=== PATIENT | male | born 1970 | race Caucasian/White ===

== ENCOUNTER 2020-03-30 11:38 | Emergency (ER) | payer BC, SELFPAY ==
[2020-03-30 11:55] VITALS: BP 187/85; PULSE 121; RESP 18; TEMP 37; O2SAT 100
--- NOTE | 2020-03-30 12:24 | ED.GENADULT ---
HPI - General Adult General Chief complaint: Dental/Oral Stated complaint: tooth ache Time Seen by Provider: 03/30/20 12:24 Source: patient and RN notes reviewed Mode of arrival: ambulatory Limitations: no limitations History of Present Illness HPI narrative: 50 year old male who presents to [facility] with complaints of dental pain with swelling to the right side of his face since Tuesday. Patient states that he has had some problems with this back right molar for some time with just intermittent discomfort but since Tuesday the side of his face has been swelling and he has noted pain with redness and swelling around right back molar. Patient denies any trouble with his breathing or any difficulty swallowing. He states that he has been taking Tylenol and Ibuprofen for his discomfort and using salt water rinses with mild improvement in his discomfort. MD complaint: dental pain Location: mouth Radiation: other (facial swelling) Severity: moderate Quality: aching Exacerbating factors: eating Associated symptoms: denies other symptoms Treatments prior to arrival: NSAID Related Data Allergies Allergy/AdvReac Type Severity Reaction Status Date / Time No Known Allergies Allergy Verified 03/30/20 12:23 Review of Systems Review of Systems: Narrative: CONSTITUTIONAL: Denies fever, chills, or sweats. EYES: Denies visual changes, redness, or discharge. ENT: Denies rhinorrhea, congestion, sore throat, or otalgia., positive for dental pain and facial swelling CARDIOVASCULAR: Denies chest pain, palpitations, or edema. RESPIRATORY: Denies cough or dyspnea. GASTROINTESTINAL: Denies abdominal pain, nausea, vomiting, or diarrhea. GENITOURINARY: Denies dysuria or hematuria. SKIN: Denies rash or itching. MUSCULOSKELETAL: Denies back pain, joint pain, or myalgia. NEUROLOGIC: Denies headache, numbness, or weakness. PSYCHIATRIC: Denies anxiety or depression. All systems reviewed & are unremarkable except as noted in HPI and below [facility] Surgical History Surgical History (Updated 03/30/20 @ 12:53 by Rea Nash NP) History of wisdom tooth extraction, class I edentulism Social History Social History (Updated 03/30/20 @ 12:55 by Rea Nash NP) Smoking status: Former smoker Tobacco type: cigarettes Smoking end date: 06/13/11 Alcohol intake: unknown Substance use: unknown Living arrangements: with family Gender identity (if verbalized by the patient): Male Comments At time of signature, agree with nursing past medical, surgical, social and family history. There is no relevant family history pertinent to the presenting complaint Exam Narrative: Exam Narrative: GENERAL: Well-appearing, well-nourished, and in no acute distress. HEAD: Normocephalic, atraumatic. EYES: PERRLA and EOMI. ENT: Nares clear, no rhinorrhea or epistaxis. Mucous membranes moist.TM's normal with good light reflex, throat pink with no edema or tonsil enlargement. #31 tooth decayed with redness and swelling of gums around tooth, No Ryan angina NECK: Supple.no lymphadenopathy CHEST: Clear to auscultation. No respiratory distress.SAO2 100% HEART: Regular rate and rhythm. No murmur heard. Normal peripheral pulses. ABDOMEN: Soft, nontender, nondistended, normal active bowel sounds. EXTREMITIES: Normal range of motion. No edema. SKIN: Warm, dry, no rash. NEURO: No focal deficits. Alert and oriented x3. Course Vital Signs Vital signs: Vital Signs Temperature 37.0 C 03/30/20 11:55 Pulse Rate 121 H 03/30/20 11:55 Respiratory Rate 18 03/30/20 11:55 Blood Pressure 187/85 H 03/30/20 11:55 Pulse Oximetry 100 03/30/20 11:55 Temperature 37.0 C 03/30/20 11:55 Pulse Rate 121 H 03/30/20 11:55 Respiratory Rate 18 03/30/20 11:55 Blood Pressure 187/85 H 03/30/20 11:55 Pulse Oximetry 100 03/30/20 11:55 Medical Decision Making Differential Diagnosis Differential Diagnosis: Dental abscess, dental cavities, dental pain, facia
== END 2020-03-30 12:54 | disposition home or self-care (01) ==
PROVIDERS: Emergency Provider Registered Nurse
DX: K04.7 Periapical abscess without sinus (principal); K08.89 Other specified disorders of teeth and supporting structures; Z87.891 Personal history of nicotine dependence; E11.9 Type 2 diabetes mellitus without complications
CPT/HCPCS: 99213; G0463